=== PATIENT | female | born 1940 | race Caucasian/White ===

== ENCOUNTER 2017-07-21 11:43 | Outpatient (CLI) | payer MEDICARE, OTHER | END 2017-07-21 11:44 | disposition home or self-care (01) | LOC: BICRAD 11:43 | PROVIDERS: ATTEND Family Medicine | DX: M25.511 Pain in right shoulder (principal); M79.644 Pain in right finger(s); R60.9 Edema, unspecified; S63.212A Subluxation of metacarpophalangeal joint of right middle finger, initial encounter; S63.210A Subluxation of metacarpophalangeal joint of right index finger, initial encounter; M19.041 Primary osteoarthritis, right hand; M19.011 Primary osteoarthritis, right shoulder ==

== ENCOUNTER 2017-08-08 10:55 | Outpatient (CLI) | payer MEDICARE, OTHER | END 2017-08-08 10:56 | disposition home or self-care (01) | LOC: BICRAD 10:55 | PROVIDERS: ATTEND Internal Medicine Pulmonary Disease | DX: R06.00 Dyspnea, unspecified (principal) | CPT/HCPCS: 71046 ==

== ENCOUNTER 2018-06-07 14:05 | Emergency (ER) | payer MEDICARE ==
--- NOTE | 2018-06-07 14:56 | RAD ---
LEFT WRIST THREE VIEWS: History: Fall 15 minutes with left wrist pain. FINDINGS: Three views of the left wrist shows an impacted comminuted fracture of the distal radius. There is an accessory ulnar styloid process fracture. Surrounding soft tissue swelling is seen. IMPRESSION: Distal radius and ulnar styloid fractures. POS: [facility]
[2018-06-07] MEDS ORDERED: Lidocaine 1% w/Epinephrine 1:100K 20 ML VIAL ONE (15:47)
[2018-06-07] MEDS ORDERED: Morphine 10 MG/ML VIAL ONE (16:20)
[2018-06-07] MEDS ORDERED: Ketamine 50 MG/ML (10ML VIAL) ONE (17:39)
--- NOTE | 2018-06-07 19:12 | RAD ---
LEFT WRIST THREE VIEWS: 06/07/18 HISTORY: Post reduction. COMPARISON: Earlier exam done today. The comminuted impacted and displaced distal radial fracture has been reduced with a fairly satisfact ory overall appearance to the fracture minimal dorsal displacement remains. No significant angulation . Bones are very demineralized. IMPRESSION: Reduction in distal radial fracture. POS: [facility]
== END 2018-06-07 19:29 | disposition home or self-care (01) ==
LOC: ERS 14:05
DX: S52.512A Displaced fracture of left radial styloid process, initial encounter for closed fracture (principal); S52.612A Displaced fracture of left ulna styloid process, initial encounter for closed fracture; F32.9 Major depressive disorder, single episode, unspecified; Z79.899 Other long term (current) drug therapy; Z79.82 Long term (current) use of aspirin; W01.0XXA Fall on same level from slipping, tripping and stumbling without subsequent striking against object, initial encounter
CPT/HCPCS: 25565; 96360; 96372; 99152; J2001; J2270

== ENCOUNTER 2018-06-08 17:49 | Emergency (ER) | payer MEDICARE, OTHER ==
[2018-06-08] MEDS ORDERED: HYDROcodone/Acetaminophen 5/325 mg Tablet ONE (19:01)
== END 2018-06-08 19:07 | disposition home or self-care (01) ==
LOC: ERS 17:49
DX: Z46.89 Encounter for fitting and adjustment of other specified devices (principal); F32.9 Major depressive disorder, single episode, unspecified; Z79.899 Other long term (current) drug therapy; Z79.82 Long term (current) use of aspirin
CPT/HCPCS: 99282

== ENCOUNTER 2018-06-13 09:05 | Day surgery (SDC) | payer MEDICARE, OTHER ==
[2018-06-12 13:58] VITALS: BMI 23.7
[2018-06-13] MEDS ORDERED: Dexamethasone 20 MG/5 ML VIAL ONE (10:21)
[2018-06-13] MEDS ORDERED: Ondansetron PF 4 MG/2 ML Vial ONE (10:21)
[2018-06-13] MEDS ORDERED: Lidocaine 1% PF 5 ML VIAL ONE (10:21)
[2018-06-13] MEDS ORDERED: PROPOFOL 200 MG/20 ML VIAL ONE (10:21)
[2018-06-13] MEDS ORDERED: Fentanyl 100 MCG/2 ML VIAL ONE ×2 (10:37→11:19)
[2018-06-13] MEDS ORDERED: Midazolam HCl 2 mg/2 ml Vial ONE (10:37)
[2018-06-13] MEDS ORDERED: Lidocaine 1% (PF) 30 ML VIAL ONE (10:43)
[2018-06-13] MEDS ORDERED: Famotidine/PF 20 mg/2ml Vial ONE (10:50)
[2018-06-13] MEDS ORDERED: Scopolamine 1.5 mg/72 hour Patch ONE (10:50)
[2018-06-13] MEDS ORDERED: Clindamycin/D5W 600 mg/50 ml Premix Bag ONE (10:50)
[2018-06-13] MEDS ORDERED: Ropivacaine 0.5% HCl/PF (150 MG/30 ML VIAL) ONE (10:56)
[2018-06-13] MEDS ORDERED: Ropivacaine 0.2% HCl/PF (40 MG/20 ML VIAL) ONE (10:56)
[2018-06-13] MEDS ORDERED: traMADol HCl 50 MG TAB PO PRN ×2 (11:02)
[2018-06-13] MEDS ORDERED: Ondansetron PF 4 MG/2 ML Vial IVP PRN (11:02)
[2018-06-13] MEDS ORDERED: Ketorolac Tromethamine 30 MG/ML VIAL IVP PRN (11:02)
[2018-06-13] MEDS ORDERED: Promethazine HCl 25 MG/ML VIAL IM PRN (11:02)
[2018-06-13] MEDS ORDERED: HYDROcodone/Acetaminophen 5/325 mg Tablet PO PRN ×2 (11:02)
[2018-06-13] MEDS ORDERED: Ropivacaine 0.2% 550 ML 550 ML NERVE BLCK SCH (11:02)
[2018-06-13] MEDS ORDERED: Zolpidem Tartrate 5 MG TAB PO PRN (11:02)
[2018-06-13] MEDS ORDERED: Fentanyl 100 MCG/2 ML VIAL IV PRN (11:02)
[2018-06-13] MEDS ORDERED: Propofol 500 MG/50 ML VIAL ONE (11:13)
--- NOTE | 2018-06-13 15:33 | RAD ---
INTRAOPERATIVE FLUOROSCOPY: Date: 06/13/18 COMPARISON: 06/07/18. HISTORY: Distal radius fracture. FINDINGS: Two intraoperative fluoroscopic images demonstrate placement of a metallic plate at the level of the distal radius fracture. IMPRESSION: Fluoroscopy as above. POS: [facility]
--- NOTE | 2018-06-13 16:55 | OP ---
DATE OF PROCEDURE: 06/13/2018 PROCEDURE PERFORMED: Open reduction and internal fixation of left distal radius fracture. PREOPERATIVE DIAGNOSIS: Left distal radius fracture with displacement and comminution. POSTOPERATIVE DIAGNOSIS: Left distal radius fracture with displacement and comminution. COMPLICATIONS: None. ESTIMATED BLOOD LOSS: Minimal. ANESTHESIA: General plus regional. INSURANCE ACTUARY: Chris Ansari PA-C. IMPLANT: Synthes volar 3-hole distal radius plate was utilized. INDICATIONS: Ms. Crowe is a 78-year-old female, who fell. She fractured her left radius. She was indicated for open reduction and internal fixation to restore anatomic alignment and promote healing. Risks have been reviewed in detail. She elected to proceed with the operation. DESCRIPTION OF PROCEDURE: Ms. Crowe was identified in the preoperative holding area. Her correct extremity was marked. She was carried to the operating room. She was positioned supine. General anesthesia was induced. A multidisciplinary time-out was performed. The left upper extremity was prepped and draped in sterile fashion. At this point, we made an incision for an FCR approach. We dissected down through the subcutaneous tissues to the fascia of the FCR. We opened the fascia. We then retracted the FCR tendon and opened the deep aspect. At this point, we exposed the pronator quadratus, which was elevated from the distal radius. We then reduced the fracture after irrigation and cleaning the fracture lines. Once we had an anatomic reduction, we applied a volar Synthes plate. Multiple screws were placed distally and proximally. We took x-ray images confirming plate and hardware placement. There were no complications. After all screws were placed, we thoroughly irrigated with copious lavage. We then closed the deep fascia with 0 Vicryl suture followed by 2-0 Vicryl suture, and jason for the skin. A sterile dressing was applied at this point. The patient was taken to the recovery room in good condition without complication. Job ID: [id number]
--- NOTE | 2018-06-15 16:35 | EKG ---
Test Reason : PREOP Blood Pressure : / mmHG Vent. Rate : 072 BPM Atrial Rate : 072 BPM P-R Int : 170 ms QRS Dur : 084 ms QT Int : 388 ms P-R-T Axes : 066 028 038 degrees QTc Int : 424 ms Normal sinus rhythm Normal ECG When compared with ECG of 14-AUG-2015 12:13, T wave inversion no longer evident in Anterior leads Confirmed by DR. Magaly ROGERS ([id number]) on 06/15/2018 4:35:23 PM Referred By: ASHIL Confirmed By:DR. Magaly ROGERS
== END 2018-06-13 14:15 | disposition home or self-care (01) ==
LOC: SDC 09:05
PROVIDERS: ATTEND Orthopaedic Surgery
PROC: 0PSJ04Z Reposition Left Radius with Internal Fixation Device, Open Approach (ICD-10-PCS; principal; 2018-06-13)
PROC: 0PSJ04Z Reposition Left Radius with Internal Fixation Device, Open Approach (ICD-10-PCS; 2018-06-13)
DX: S52.532A Colles' fracture of left radius, initial encounter for closed fracture (principal); E78.00 Pure hypercholesterolemia, unspecified; K21.9 Gastro-esophageal reflux disease without esophagitis; M19.90 Unspecified osteoarthritis, unspecified site; F32.9 Major depressive disorder, single episode, unspecified; F41.9 Anxiety disorder, unspecified; I10 Essential (primary) hypertension; Z79.82 Long term (current) use of aspirin; Z79.899 Other long term (current) drug therapy; Z88.0 Allergy status to penicillin; Z88.2 Allergy status to sulfonamides; W19.XXXA Unspecified fall, initial encounter
CPT/HCPCS: 25607; 73110; 76000; 93005; A4306; 93010; C1713; J0131; J1100; J2001; J2250; J2405; J2704; J2795; J3010; J3490; S0028

== ENCOUNTER 2018-08-21 10:01 | Outpatient (CLI) | payer MEDICARE, OTHER ==
--- NOTE | 2018-08-21 10:27 | RAD ---
XR Shoulder Rt 3 View STANDARD: 08/21/2018 12:00 AM CLINICAL INDICATION: Pain COMPARISON: None. FINDINGS: Fracture:No fracture. Arthropathy:Moderate arthropathy. Incidental findings:Vascular calcification IMPRESSION: 1. No acute osseous abnormality. 2. Moderate osteoarthritis of the right shoulder.
== END 2018-08-21 10:02 | disposition home or self-care (01) ==
LOC: BICRAD 10:01
PROVIDERS: ATTEND Family Medicine
DX: M25.511 Pain in right shoulder (principal); M19.011 Primary osteoarthritis, right shoulder

== ENCOUNTER 2018-09-10 15:05 | Outpatient (CLI) | payer MEDICARE, OTHER ==
--- NOTE | 2018-09-10 15:23 | RAD ---
PA AND LATERAL VIEWS OF THE CHEST: 09/10/18 HISTORY: Dyspnea. FINDINGS: Comparison made with exam of 01/26/17. The heart size is normal. The aorta is tortuous. The lungs are well expanded without focal areas of c onsolidation, pneumothoraces or pleural effusions. Degenerative changes are again seen in the thorac ic spine. IMPRESSION: No radiographic evidence of acute cardiopulmonary process. POS: [facility]
== END 2018-09-10 15:06 | disposition home or self-care (01) ==
LOC: RAD 15:05
PROVIDERS: ATTEND Internal Medicine Pulmonary Disease
DX: R06.00 Dyspnea, unspecified (principal)
CPT/HCPCS: 71046

== ENCOUNTER 2018-12-20 10:24 | Outpatient (CLI) | payer MEDICARE, OTHER ==
--- NOTE | 2018-12-20 13:37 | MRI ---
MRI OF RIGHT SHOULDER PERFORMED WITHOUT CONTRAST ENHANCEMENT: HISTORY: Shoulder pain with painful range of motion. FINDINGS: There is a massive rotator cuff tear present. This involves the entire supraspinatus tendon which is retracted by approximately 3.5 cm also involving the anterior fibers of the infraspinatus tendon and there is evidence of some delamination of the infraspinatus tendon with fluid extending into the mus culotendinous junction. In addition, there is a partial-width complete tear of the superior fibers o f the subscapularis tendon. The biceps tendon is subluxed into the substance of the biceps tendon. The humeral head is high-riding associated with these findings directly abutting the undersurface of the acromion. There is mild atrophy of the superior fibers of the infraspinatus tendon and also mild changes of the infraspinatus muscle and mild changes of the supraspinatus muscle. Also moderate atr ophy to the superior fibers of the subscapularis muscle. There are arthritic changes of the glenohumeral joint space. Marked articular cartilage loss of the humeral head, particularly the superior articular surface. The superior labrum is frayed and irregul ar. IMPRESSION: 1. Massive rotator cuff tear involving the entire supraspinatus tendon which is retracted by as much as 3.5 cm. There is a delaminating tear extending into the infraspinatus tendon and the tear also i nvolves the superior fibers of the subscapularis tendon. The biceps tendon is subluxed into the subs tance of the subscapularis tendon. 2. Marked arthritic change of the glenohumeral joint space. 3. Mild rotator cuff muscle atrophy as described above. These changes are most pronounced in the murdock bscapularis muscle. POS: [facility]
== END 2018-12-20 10:25 | disposition home or self-care (01) ==
LOC: BICMRI 10:24
PROVIDERS: ATTEND Family Medicine
DX: M25.511 Pain in right shoulder (principal); M75.101 Unspecified rotator cuff tear or rupture of right shoulder, not specified as traumatic; M19.011 Primary osteoarthritis, right shoulder

== ENCOUNTER 2018-12-29 11:30 | Emergency (ER) | payer MEDICARE, OTHER | END 2018-12-29 12:45 | disposition home or self-care (01) | LOC: ERS 11:30 | DX: S46.011A Strain of muscle(s) and tendon(s) of the rotator cuff of right shoulder, initial encounter (principal); F32.9 Major depressive disorder, single episode, unspecified; Z79.899 Other long term (current) drug therapy; X58.XXXA Exposure to other specified factors, initial encounter | CPT/HCPCS: 99283 ==

== ENCOUNTER 2019-01-18 09:54 | Outpatient (CLI) | payer MEDICARE, OTHER ==
--- NOTE | 2019-01-18 10:36 | ULT ---
ULTRASOUND ABDOMEN: HISTORY: Nausea FINDINGS: The liver, spleen, gallbladder, kidneys and visualized portions of the pancreas, aorta and IVC appear normal. The common duct measures 8mm in diameter. No free fluid is seen. IMPRESSION: Normal exam.
== END 2019-01-18 09:55 | disposition home or self-care (01) ==
LOC: SCSULT 09:54
PROVIDERS: ATTEND Family Medicine
DX: R11.0 Nausea (principal)
CPT/HCPCS: 93975

== ENCOUNTER 2019-09-12 14:36 | Emergency (ER) | payer MEDICARE, OTHER ==
[2019-09-12] MEDS ORDERED: Acetaminophen/Codeine 30-300mg Tablet ONE (16:09)
--- NOTE | 2019-09-12 16:49 | CT ---
EXAM: CT of the lumbar spine without contrast HISTORY: Back pain after fall. COMPARISON: None TECHNIQUE: Multiple contiguous axial images were obtained in a CT of the lumbar spine without contras t. Sagittal and coronal reformats were performed. FINDINGS: The vertebral bodies demonstrate normal height without acute fracture or subluxation. The interverteb ral discs are narrowed in the upper lumbar spine. There is fusion of the posterior facets at the thoracolumbar junction. Atherosclerotic calcifications are seen in the aorta. The other prevertebral and paraspinal soft tiss ues are unremarkable. T12/L1: No bony narrowing of the central canal or neural foramina. L1/2: No bony narrowing of the central canal or neural foramina. L2/3: There is a moderate disc osteophyte complex. Moderate bilateral neural foraminal stenosis, righ t greater than left. Mild central canal stenosis. L3/4: There is a small disc osteophyte complex. Moderate bilateral posterior facet arthrosis. Moderat e central canal stenosis. Moderate bilateral neural foraminal stenosis. L4/5: There is a large disc osteophyte complex. Severe bilateral posterior facet arthrosis. Severe ce ntral canal stenosis. Moderate bilateral neural foraminal stenosis. L5/S1: There is a small disc osteophyte complex. Severe bilateral posterior facet arthrosis. No centr al canal stenosis. No neural foraminal stenosis. IMPRESSION: Degenerative changes of lumbar spine as above without acute osseous abnormality.
== END 2019-09-12 17:35 | disposition home or self-care (01) ==
LOC: ERS 14:36
DX: M54.5 Low back pain (principal); I10 Essential (primary) hypertension; E78.00 Pure hypercholesterolemia, unspecified; F32.9 Major depressive disorder, single episode, unspecified; Z79.899 Other long term (current) drug therapy; W01.0XXA Fall on same level from slipping, tripping and stumbling without subsequent striking against object, initial encounter
CPT/HCPCS: 72131

== ENCOUNTER 2019-09-19 11:26 | Outpatient (CLI) | payer MEDICARE, OTHER ==
--- NOTE | 2019-09-19 11:51 | RAD ---
Exam: Single view of the pelvis HISTORY: Pelvic and hip pain After fall one week ago COMPARISON: None FINDINGS: A single view the pelvis shows no evidence of acute fracture or dislocation. No degenerativ e changes seen in either hip. IMPRESSION: No evidence of acute osseous abnormality.
--- NOTE | 2019-09-19 11:53 | RAD ---
EXAM: 3 views of the thoracic spine HISTORY: Thoracic spine pain COMPARISON: Lumbar spine radiograph 09/19/2019 FINDINGS: 3 views of the thoracic spine shows normal height and alignment of the vertebral bodies and intervertebral discs without fracture or subluxation. There is wedging of the L1 vertebral body. Moderate diffuse significant degenerative changes are seen. IMPRESSION: Moderate degenerative changes of the thoracic spine without acute osseous abnormality.
--- NOTE | 2019-09-19 13:36 | RAD ---
LUMBAR SPINE TWO VIEWS: 09/19/19 COMPARISON: None available. HISTORY: Fall, back pain. FINDINGS: Anterolisthesis at L4-5 noted measuring 6 mm. There is 7 mm of retrolisthesis at L2-3. There is multilevel lower lumbar spine facet hypertrophy. There is disc space narrowing with degenera tive end plate change and anterior osteophyte formation at T10-11, T11-12, L1-2 and L2-3. No definite acute fracture is seen. There is degenerative mild scoliosis at the thoracolumbar junctio n. There is mild anterior wedging of the L1 vertebral body which appears similar when compared to a prior MRI and likely is on the basis of an old fracture or degenerative change. IMPRESSION: Severe degenerative change. No obvious acute fracture. If there is clinical concern for radio-occult fracture, MRI advised. POS: [facility]
== END 2019-09-19 11:27 | disposition home or self-care (01) ==
LOC: BICRAD 11:26
PROVIDERS: ATTEND Physician Assistant
DX: M54.6 Pain in thoracic spine (principal); M54.5 Low back pain; W19.XXXD Unspecified fall, subsequent encounter; M47.816 Spondylosis without myelopathy or radiculopathy, lumbar region; M47.814 Spondylosis without myelopathy or radiculopathy, thoracic region
CPT/HCPCS: 72072; 72100; 72170

== ENCOUNTER 2019-09-20 11:12 | Outpatient (CLI) | payer MEDICARE, OTHER ==
--- NOTE | 2019-09-20 13:30 | CT ---
CT thoracic spine without contrast HISTORY: Acute midline thoracic back pain. Upper back pain due to fall FINDINGS: No mediastinal mass, lymphadenopathy or hematoma. Normal heart size. No significant pericar dial fluid. There are coronary artery calcifications. Atherosclerosis of a nonaneurysmal aorta Visualized upper abdomen does not demonstrate any acute abnormality of posttraumatic change There is diffuse bone demineralization. Extensive osteophyte formation of the thoracic spine. No evid ence of fracture. Spondylolisthesis: 1.9 mm of anterolisthesis of T3 upon T4; 0.8 mm anterolisthesis of T6 upon C7 12 thoracic type vertebra. Vertebral body heights are maintained. There is no fracture. No paraspinal /retroperitoneal lymphadenopathy, mass or hematoma. No significant central canal stenosis or significant neural foraminal narrowing throughout the thorac ic spine Presumed postsurgical or posttraumatic changes at the L1 level, incompletely evaluated IMPRESSION: No fracture.
== END 2019-09-20 11:13 | disposition home or self-care (01) ==
LOC: SCSCT 11:12
PROVIDERS: ATTEND Physician Assistant
DX: M54.6 Pain in thoracic spine (principal); W19.XXXD Unspecified fall, subsequent encounter
CPT/HCPCS: 72128

== ENCOUNTER 2019-10-09 12:25 | Outpatient (CLI) | payer MEDICARE, OTHER ==
--- NOTE | 2019-10-09 14:39 | MRI ---
MRI OF THE LUMBAR SPINE WITHOUT CONTRAST: DATE: 10/09/2019. COMPARISON: None. Correlation is made to CT of the lumbar spine 09/12/2019. HISTORY: Back pain with sciatica, left-sided lower back pain, history of numerous falls, history of multiple s pine fractures with surgery. TECHNIQUE: Multiplanar, multisequence MR imaging of the lumbar spine is provided without contrast. FINDINGS: The sagittal STIR imaging demonstrates abnormal increased signal intensity throughout the L1 vertebra l body consistent with acute vertebral body edema. This T2 hyperintensity extends into the region of the interspinous ligament at T12-L1 as well as possibly involving the L1 spinous process. There is also increased signal on the basis of edema extending into the region of the bilateral L1 pedicles. There is associated acute burst fracture of L1 with approximately 60% loss of vertebral body height c entrally. The central aspect of the L1 vertebral body measures 8-9 mm in craniocaudal dimension, sig nificantly progressed since the prior CT of the lumbar spine performed 09/12/2019 where the L1 vertebr al body measured 1.7 cm in craniocaudal dimension. On the basis of 5 lumbar-type vertebral bodies, the conus medullaris terminates at the L1 level. T12-L1: There is disk space narrowing with disk desiccation. There is bilateral facet hypertrophy w ith moderate right and mild left neural foraminal stenosis. No significant central canal stenosis. Mild osseous retropulsion associated with the L1 burst fracture causes a mild degree of central canal stenosis along the inferior aspect of L1. L1-2: Disk desiccation and bilateral facet hypertrophy present. Moderate right and mild left neural foraminal stenosis. No significant central canal stenosis. L2-3: Retrolisthesis of L2 on L3 noted measuring approximately 6 mm. Bilateral facet hypertrophy is present. No significant central canal stenosis. Severe right neural foraminal stenosis. No signif icant left neural foraminal stenosis. L3-4: There is disk space narrowing with disk desiccation and mild disk bulge. Bilateral facet hype rtrophy and hypertrophy of the ligamentum flavum, left greater than right. There is mild central can al stenosis/left lateral recess stenosis and mild bilateral neural foraminal stenosis. L4-5: Disk space narrowing with disk desiccation and mild disk bulge. Anterolisthesis noted measuri ng 3-4 mm. Prominent bilateral facet hypertrophy and hypertrophy of the ligamentum flavum. Severe c entral canal stenosis. Mild right and moderate left neural foraminal stenosis. L5-S1: Bilateral facet hypertrophy noted, right greater than left. No significant central canal or neural foraminal stenosis. Imaged retroperitoneal structures demonstrate no acute findings. IMPRESSION: 1. Interval development of L1 burst fracture with probable involvement of the bilateral pedicles as well as the interspinous ligament and possibly the L1 spinous process. The degree of retropulsion do es not cause significant central canal stenosis at this time. These findings are suspicious for an u nstable chance-type fracture. Immobilization and CT examination is advised to evaluate the full exte nt of this fracture. Results were called to [facility] at 1:35 p.m. 10/09/2019. 2. Prominent lumbar spine degenerative change. CODE CR POS: [facility]
== END 2019-10-09 12:26 | disposition home or self-care (01) ==
LOC: MRI 12:25
PROVIDERS: ATTEND Physician Assistant
DX: M54.5 Low back pain (principal); M47.816 Spondylosis without myelopathy or radiculopathy, lumbar region; S32.011A Stable burst fracture of first lumbar vertebra, initial encounter for closed fracture
CPT/HCPCS: 72148

== ENCOUNTER 2019-10-23 09:33 | Outpatient (CLI) | payer MEDICARE, OTHER ==
--- NOTE | 2019-10-23 10:47 | RAD ---
LUMBAR SPINE 2 VIEWS: AP and lateral views obtained weightbearing. INDICATION: Fractured lumbar vertebrae. COMPARISON: Comparison is made to MRI of 10/09/2019 which revealed edema and compression of the L1 vertebra. Mild retropulsion was described on that exam. FINDINGS: Compression deformity of the L1 vertebral is again noted. The degree of compression does not appear significantly changed from the MRI of 10/09/2019. Mild retropulsion does not appear significantly jackie nged. The other lumbar vertebrae maintain normal height. Mild posterior listhesis at L2-3 is stable. Dege nerative changes of the lumbar spine are again noted and appear unchanged. IMPRESSION: Stable compression fracture of L1. POS: [facility]
== END 2019-10-23 09:34 | disposition home or self-care (01) ==
LOC: BICRAD 09:33
PROVIDERS: ATTEND Surgery
DX: S32.009A Unspecified fracture of unspecified lumbar vertebra, initial encounter for closed fracture (principal)
CPT/HCPCS: 72100

== ENCOUNTER 2019-11-21 13:26 | Outpatient (CLI) | payer MEDICARE, OTHER ==
--- NOTE | 2019-11-21 14:13 | RAD ---
XR Lumbar Spine 2 Or 3 View History: Lumbar spine compression fracture Comparison: Radiograph October 23, 2019 Findings: Mild S-shaped scoliosis dorsal lumbar spine. Similar appearance of the L1 compression defor mity with volume loss. Grade 1 L1 over L2 and L2 over 3 retrolisthesis. Severe facet arthrosis throughout the lumbar spine. High-grade interspinous narrowing. Minimal superior endplate compression of L2 anteriorly. Impression: Similar appearance without progressive L1 height loss.
== END 2019-11-21 13:27 | disposition home or self-care (01) ==
LOC: RAD 13:26
PROVIDERS: ATTEND Surgery
DX: M48.56XA Collapsed vertebra, not elsewhere classified, lumbar region, initial encounter for fracture (principal); M54.5 Low back pain
CPT/HCPCS: 72100

== ENCOUNTER 2020-01-06 13:21 | Outpatient (CLI) | payer MEDICARE, OTHER ==
--- NOTE | 2020-01-06 14:34 | RAD ---
LUMBAR SPINE 2 VIEWS: HISTORY: Lumbar stenosis. COMPARISON: 11/21/2019. FINDINGS: Compression deformity of L1 is again seen and does not appear significantly changed. Posterior listh esis at the L2-3 level is stable. Slight anterolisthesis at L4-5 is unchanged. The lumbar vertebrae below L1 maintain height. Prominent facet hypertrophy is stable. Osteophytes in the lower thoracic spine again noted. IMPRESSION: Comparison deformity of L1 shows no interval change. There are degenerative changes of the lumbar sp ine again noted. POS: [facility]
== END 2020-01-06 13:22 | disposition home or self-care (01) ==
LOC: BICRAD 13:21
PROVIDERS: ATTEND Surgery
DX: M48.062 Spinal stenosis, lumbar region with neurogenic claudication (principal); M47.816 Spondylosis without myelopathy or radiculopathy, lumbar region
CPT/HCPCS: 72100

== ENCOUNTER 2021-02-09 13:10 | Outpatient (CLI) | payer MEDICARE, OTHER | END 2021-02-09 13:11 | disposition home or self-care (01) | LOC: BICRAD 13:10 | PROVIDERS: ATTEND Physical Therapist | DX: M54.50 Low back pain, unspecified (principal); M25.552 Pain in left hip; M43.16 Spondylolisthesis, lumbar region | CPT/HCPCS: 72100 ==

== ENCOUNTER 2021-11-03 09:19 | Outpatient (CLI) | payer MEDICARE, OTHER | END 2021-11-03 09:20 | disposition home or self-care (01) | LOC: BICMAMMO 09:19 | PROVIDERS: ATTEND Family Medicine | DX: N64.52 Nipple discharge (principal) | CPT/HCPCS: 76642; 77066; G0279 ==

== ENCOUNTER 2022-12-15 11:23 | Outpatient (CLI) | payer MEDICARE | END 2022-12-15 11:24 | disposition home or self-care (01) | LOC: BICMAMMO 11:23 | PROVIDERS: ATTEND Family Medicine | DX: Z12.31 Encounter for screening mammogram for malignant neoplasm of breast (principal) | CPT/HCPCS: 77063; 77067 ==

== ENCOUNTER 2023-11-14 10:11 | Outpatient (CLI) | payer MEDICARE | END 2023-11-14 10:12 | disposition home or self-care (01) | LOC: BICRAD 10:11 | PROVIDERS: ATTEND Family Medicine | DX: M54.50 Low back pain, unspecified (principal) | CPT/HCPCS: 72100 ==